=== PATIENT | female | born 1965 | race African-American/Black ===

== ENCOUNTER 2018-05-07 02:29 | Inpatient (IN) | payer SELFPAY ==
[~2018-05-07] VITALS: Ht 160 cm; Wt 60.8 kg
[2018-05-07 11:27] LABS: CLARITY URINE CLOUDY (CLEAR); COLOR URINE YELLOW (YELLOW); KETONES URINE NEGATIVE (NEGATIVE); LEUKOCYTE ESTERASE URINE 3+ (NEGATIVE); NITRITE URINE POSITIVE (NEGATIVE); OCCULT BLOOD URINE 1+ (NEGATIVE); PROTEIN URINE NEGATIVE (NEGATIVE); SPECIFIC GRAVITY URINE 1.017 (1.005-1.030); UROBILINOGEN URINE 0.2 E.U./dL (0.2-1.0)
[2018-05-07] MEDS ORDERED: ACETAMINOPHEN 325MG TABLET PO ONE (14:00)
[2018-05-07] MEDS ORDERED: CEFTRIAXONE 1 G PREMIX 50 ML IV ONE (14:45)
[2018-05-07 15:09] LABS: BASOPHILS % 0.5 % (0.0-2.0); EOSINOPHILS % 3.8 % (0.0-5.0); HEMATOCRIT. 42.2 % (36.0-48.0); MEAN CORPUSCULAR HEMOGLOBIN 30.5 pg (28.0-32.0); MEAN CORPUSCULAR VOLUME 91.9 fL (81.0-99.0); MEAN PLATELET VOLUME 7.5 fl (7.4-10.4); NEUTROPHILS % 40.7 % (40.0-76.0); PLATELET 279 x1000/uL (130-400); RED CELL DISTRIBUTION WIDTH 13.1 % (11.6-14.6)
[2018-05-07 15:16] LABS: CHLORIDE 104 mEq/L (98-107)
[2018-05-07 15:47] LABS: PROTHROMBIN TIME 10.5 sec (9.4-11.6)
[2018-05-07 17:25] LABS: *AMPHETAMINES SCREEN URINE NEGATIVE (NEGATIVE); *BARBITURATES SCREEN URINE NEGATIVE (NEGATIVE); *BENZODIAZEPINES SCREEN URINE NEGATIVE (NEGATIVE); *COCAINE SCREEN URINE NEGATIVE (NEGATIVE); METHADONE URINE SCREEN NEGATIVE (NEGATIVE)
[2018-05-07 17:26] LABS: CANNABINOID URINE SCREEN NEGATIVE (NEGATIVE); OPIATES URINE SCREEN NEGATIVE (NEGATIVE); PHENCYCLIDINE URINE SCREEN NEGATIVE (NEGATIVE)
[2018-05-07] MEDS ORDERED: ONDANSETRON HCL 4MG/2ML VIAL IV STA (17:48)
[2018-05-07] MEDS ORDERED: ACETAMINOPHEN 650MG SUPP PR PRN (21:30)
[2018-05-07] MEDS ORDERED: ACETAMINOPHEN 325MG TABLET PO PRN (21:30)
[2018-05-07] MEDS ORDERED: DIPHENHYDRAMINE 50MG/ML VIAL IV PRN (21:30)
[2018-05-07] MEDS ORDERED: CEFTRIAXONE 1 G PREMIX 50 ML IV SCH (21:30)
[2018-05-07] MEDS ORDERED: GUAIFENESIN 200MG/10ML SUGAR FREE UDC PO PRN (21:30)
[2018-05-07] MEDS ORDERED: CLONIDINE 0.1MG TABLET PO PRN (21:30)
[2018-05-07] MEDS ORDERED: ACETAMINOPHEN 650MG/20.3ML UDC GT PRN (21:30)
[2018-05-07] MEDS ORDERED: NA PHOS,M-B/NA PHOS,DI-BA ENEMA 118ML PR PRN (21:30)
[2018-05-07] MEDS ORDERED: MAGNESIUM/ALUMINUM HYDROXIDE/SIMETHICONE 30ML UDC PO PRN (21:30)
[2018-05-07] MEDS ORDERED: HYDROCODONE/ACETAMINOPHEN 5/325MG TABLET PO PRN (21:30)
[2018-05-07] MEDS ORDERED: IPRATROPIUM/ALBUTEROL 0.5-3(2.5)MG/3ML NEB INH PRN (21:30)
[2018-05-07] MEDS ORDERED: DOCUSATE SODIUM 100MG CAPSULE PO PRN (21:30)
[2018-05-08] VITALS: BP 109/59
[2018-05-08 04:00] VITALS: BP 110/60
[2018-05-08 06:44] LABS: BASOPHILS % 0.5 % (0.0-2.0); EOSINOPHILS % 4.7 % (0.0-5.0); HEMATOCRIT. 35.6 % (36.0-48.0); LYMPHOCYTES % 44.9 % (20.0-50.0); MEAN CORPUSCULAR HEMOGLOBIN 30.6 pg (28.0-32.0); MEAN PLATELET VOLUME 7.6 fl (7.4-10.4); MONOCYTES % 9.7 % (2.0-8.0); NEUTROPHILS % 40.2 % (40.0-76.0); PLATELET 252 x1000/uL (130-400); RED BLOOD CELL COUNT 3.91 mill/uL (4.2-5.4)
[2018-05-08 07:25] LABS: CHLORIDE 106 mEq/L (98-107)
[2018-05-08] MEDS: SODIUM CHLORIDE 0.45% 1,000 ML IV SCH ×2 (07:28→17:40)
[2018-05-08] MEDS: SODIUM CHLORIDE 0.9% INJ 3ML FLUSH IVF SCH ×3 (07:29→21:25)
[2018-05-08 07:34] LABS: LDL CHOLESTEROL 104 mg/dL (5-100)
[2018-05-08 07:35] LABS: HDL CHOLESTEROL 54 mg/dL (40-59)
[2018-05-08 08:00] VITALS: BP 116/71
[2018-05-08] MEDS: ENOXAPARIN 40MG/0.4ML SYR SUBCUT SCH (09:00)
[2018-05-08 09:36] LABS: CREATINE KINASE 78 IU/L (26-192)
[2018-05-08 12:00] VITALS: BP 109/70
[2018-05-08 16:00] VITALS: BP 107/66
[2018-05-08] MEDS: LEVOFLOXACIN 500MG TABLET PO SCH (16:50)
[2018-05-08] MEDS: CEFTRIAXONE 1 G PREMIX 50 ML IV SCH (16:59)
[2018-05-08 20:00] VITALS: BP 96/58
[2018-05-09] VITALS: BP 98/65
[2018-05-09 04:00] VITALS: BP 111/73
[2018-05-09] MEDS: SODIUM CHLORIDE 0.9% INJ 3ML FLUSH IVF SCH ×3 (06:07→21:30)
[2018-05-09 08:00] VITALS: BP 121/79
[2018-05-09] MEDS: ENOXAPARIN 40MG/0.4ML SYR SUBCUT SCH (09:00)
[2018-05-09] MEDS: SODIUM CHLORIDE 0.45% 1,000 ML IV SCH (10:20)
[2018-05-09] MEDS: LEVOFLOXACIN 500MG TABLET PO SCH (11:00)
[2018-05-09 12:00] VITALS: BP 110/71
[2018-05-09] MEDS ORDERED: LEVO500T2 MT (12:34)
[2018-05-09] MEDS ORDERED: LEVOFLOXACIN 250MG TABLET PO NR (13:10)
[2018-05-09 16:00] VITALS: BP 138/93
[2018-05-09] MEDS: CEFTRIAXONE 1 G PREMIX 50 ML IV SCH (17:00)
[2018-05-09 20:00] VITALS: BP 129/81
[2018-05-10] VITALS: BP 109/65
[2018-05-10 04:00] VITALS: BP 117/79
[2018-05-10] MEDS: SODIUM CHLORIDE 0.9% INJ 3ML FLUSH IVF SCH ×2 (07:45→14:00)
[2018-05-10 08:00] VITALS: BP 116/71
[2018-05-10] MEDS: ENOXAPARIN 40MG/0.4ML SYR SUBCUT SCH (08:47)
[2018-05-10] MEDS: LEVOFLOXACIN 500MG TABLET PO SCH (11:40)
[2018-05-10 12:00] VITALS: BP 129/82
[2018-05-10] MEDS ORDERED: MAGNESIUM CITRATE 300ML SOLUTION PO NR (12:00)
[2018-05-10 16:00] VITALS: BP 135/105
[2018-05-10] MEDS ORDERED: BISACODYL 10MG SUPP PR PRN (16:30)
[2018-05-10] MEDS ORDERED: LEVOFLOXACIN 500MG TABLET PO SCH (17:00)
[2018-05-10 20:00] VITALS: BP 119/85
[2018-05-11] VITALS: BP 101/76
[2018-05-11 04:00] VITALS: BP 106/54
[2018-05-11 08:00] VITALS: BP 120/73
[2018-05-11] MEDS: ENOXAPARIN 40MG/0.4ML SYR SUBCUT SCH (08:27)
[2018-05-11] MEDS: LEVOFLOXACIN 500MG TABLET PO SCH (11:20)
[2018-05-11 12:00] VITALS: BP 115/69
[2018-05-11 16:00] VITALS: BP 109/65
[2018-05-11 20:00] VITALS: BP 107/70
== END 2018-05-12 05:20 | disposition left against medical advice (07) | DRG 347 ==
LOC: ER 02:29 → CANRESERV 09:21 → ENRESERV 09:21 → 6EST 20:21 → EDBEDREQSVC 20:27 → EDBEDREQ 20:27 → ENRESERV 20:33
PROVIDERS: ADMIT Family Medicine; ATTEND Family Medicine
DX: M47.894 Other spondylosis, thoracic region (principal); F99 Mental disorder, not otherwise specified; H54.7 Unspecified visual loss; M48.061 Spinal stenosis, lumbar region without neurogenic claudication; Z53.21 Procedure and treatment not carried out due to patient leaving prior to being seen by health care provider; M51.26 Other intervertebral disc displacement, lumbar region; R32 Unspecified urinary incontinence; Z59.0 Homelessness; Z99.3 Dependence on wheelchair
CPT/HCPCS: 36415; 70450; 71045; 72146; 72148; 74176; 80053; 80061; 80305; 80307; 80329; 81003; 82550; 83605; 83690; 84484; 85025; 85610; 87040; 87077; 87086; 87186; 93005; 96361; 96365; 97161; 99285; A6261; C1893; J0696; J1650; A4315

== ENCOUNTER 2018-05-12 23:58 | Emergency (ER) | payer SELFPAY ==
[~2018-05-12] VITALS: Ht 162.6 cm; Wt 64.0 kg
[~2018-05-12 23:58] MED LIST: LEVO500T2 MT
[2018-05-13 00:51] VITALS: BP 101/64
== END 2018-05-13 06:02 | disposition left against medical advice (07) ==
LOC: ER 05-13 05:39
DX: Z53.21 Procedure and treatment not carried out due to patient leaving prior to being seen by health care provider (principal)